=== PATIENT | male | born 1985 | race Caucasian/White ===

== ENCOUNTER 2021-12-11 16:33 | Emergency (ER) | payer MEDICAID ==
[~2021-12-11] VITALS: Ht 162.6 cm; Wt 72.7 kg
[2021-12-11] MEDS ORDERED: ONDANSETRON ODT 4 MG TAB PO ONE (16:45)
[2021-12-11] MEDS ORDERED: HYDROmorphone HCL 2 MG/ML VL/or syr IM ONE (16:45)
[2021-12-11 17:36] VITALS: BP 137/88
== END 2021-12-11 17:40 | disposition home or self-care (01) ==
LOC: ER 16:33
DX: M54.9 Dorsalgia, unspecified (principal); G89.4 Chronic pain syndrome
CPT/HCPCS: 96372; 99283; J1170; Q0162